=== PATIENT | female | born 1955 | race Caucasian/White ===

== ENCOUNTER 2017-10-02 01:23 | Emergency (ER) | payer OTHER ==
[2017-10-02] MEDS ORDERED: Albuterol/Ipratropium 3.0-0.5 MG/3 ML Neb Soln ONE (01:32)
[2017-10-02] MEDS ORDERED: methylPREDNISolone Sodium Succinate 125 MG/2 ML SDV ONE (01:32)
--- NOTE | 2017-10-02 01:37 | EDM.PDOC ---
ED HPI GENERAL MEDICAL PROBLEM - General Chief Complaint: Respiratory Problem Stated Complaint: AMBULANCE Time Seen by Provider: 10/02/17 01:33 - History of Present Illness INITIAL COMMENTS - FREE TEXT/NARRATIVE: HISTORY AND PHYSICAL: History of present illness: Patient is 61-year-old female past medical history significant for coronary artery disease including stent placement and COPD who is on home oxygen who was in a hotel when sister called paramedics for difficulty breathing and change in mental status. Paramedics had a blood sugar of 190 patient was hypoxemic and nonverbal at that point patient was given nebulizer IV was established high flow oxygen and transport initiated upon arrival patient is now verbal is oriented to person place moves all extremities and states she feels better Review of systems: As per history of present illness and below otherwise all systems reviewed and negative. Past medical history: As per history of present illness and as reviewed below otherwise noncontributory. Surgical history: As per history of present illness and as reviewed below otherwise noncontributory. Social history: No reported history of drug or alcohol abuse. Family history: As per history of present illness and as reviewed below otherwise noncontributory. Physical exam: HEENT: Atraumatic, normocephalic, pupils reactive, negative for conjunctival pallor or scleral icterus, mucous membranes moist, throat clear, neck supple, nontender, trachea midline. Lungs: Coarse bilaterally with scattered rare end expiratory wheezing, breath sounds equal bilaterally, chest nontender. Heart: S1S2, regular, negative for clicks, rubs, or JVD. Abdomen: Soft, nondistended, nontender. Negative for masses or hepatosplenomegaly. Negative for costovertebral tenderness. Pelvis: Stable nontender. Genitourinary: Deferred. Rectal: Deferred. Extremities: Atraumatic, negative for cords or calf pain. Neurovascular unremarkable. Neuro: Awake, follows commands moves all extremities oriented to person place limited but grossly nonfocal exam Diagnostics: CBC CMP PT/INR troponin ABG chest x-ray EKG Therapeutics: IV O2 monitor albuterol ipratropium nebulizer Solu-Medrol 125 mg IV Impression: #1 COPD exacerbation #2 altered mental status improve Definitive disposition and diagnosis as appropriate pending reevaluation and review of above. - Related Data Allergies Allergy/AdvReac Type Severity Reaction Status Date / Time No Known Allergies Allergy Verified 10/02/17 01:30 Home Meds: Home Meds Aspirin 1 tab PO DAILY 10/02/17 [History] Clopidogrel [Plavix] 75 mg PO DAILY 10/02/17 [History] Nitroglycerin [Nitrostat] 0.4 mg SL Q5M PRN 10/02/17 [History] traMADol [Ultram] 1 tab PO BID PRN 10/02/17 [History] ED ROS GENERAL - Review of Systems Review Of Systems: ROS reveals no pertinent complaints other than HPI. ED EXAM, GENERAL - Physical Exam Exam: See Below (See dictated) Course - Vital Signs Last Recorded V/S: Last Vital Signs Temp 36.1 C 10/02/17 01:23 Pulse 107 H 10/02/17 01:23 Resp 26 H 10/02/17 01:23 BP 143/93 H 10/02/17 01:23 Pulse Ox 94 L 10/02/17 01:23 - Orders/Labs/Meds Orders: Active Orders 24 hr Category Date Time Status EKG Documentation Completion [RC] STAT Care 10/02/17 01:40 Active RT Aerosol Therapy [RC] ASDIRECTED Care 10/02/17 01:52 Active Chest 1V Frontal [CR] Stat Exams 10/02/17 01:40 Ordered B-TYPE NATRIURETIC PEPTIDE,BNP [CHEM] Stat Lab 10/02/17 01:46 Received CKMB [CHEM] Stat Lab 10/02/17 01:46 Received COMPREHENSIVE METABOLIC PN,CMP [CHEM] Stat Lab 10/02/17 01:46 Received D-DIMER QUANTITATIVE [COAG] Stat Lab 10/02/17 01:46 Received INR,PT,PROTHROMBIN TIME [COAG] Stat Lab 10/02/17 01:46 Received TROPONIN I [CHEM] Stat Lab 10/02/17 01:46 Received Labs: Laboratory Tests 10/02/17 10/02/17 Range/Units 01:40 01:46 WBC 5.36 (4.0-11.0) K/uL RBC 4.11 L (4.30-5.90) M/uL Hgb 13.2 (12.0-16.0) g/dL Hct 40.5 (36.0-46.0) % MCV 98.5 H (80.0-98.0) fL MCH 32.1 H (27.0-32.0) pg MCHC 32.6 (31.0-37.0) g/dL RDW Std Deviation 49.7 (28.0-62.0) fl RDW Coeff of Claudine 14 (11.0-15.0) % Plt Count 213 (150-400) K/uL MPV 9.50 (7.40-12.00) fL Neut % (Auto) 53.2 (48.0-80.0) % Lymph % (Auto) 33.2 (16.0-40.0) % [place] % (Auto) 11.2 (0.0-15.0) % Eos % (Auto) 2.2 (0.0-7.0) % Baso % (Auto) 0.2 (0.0-1.5) % Neut # (Auto) 2.9 (1.4-5.7) K/uL Lymph # (Auto) 1.8 (0.6-2.4) K/uL [place] # (Auto) 0.6 (0.0-0.8) K/uL Eos # (Auto) 0.1 (0.0-0.7) K/uL Baso # (Auto) 0.0 (0.0-0.1) K/uL Nucleated RBC % 0.0 /100WBC Nucleated RBCs # 0 K/uL ABG pH 7.220 L (7.35-7.45) ABG pCO2 68 H (35-45) mmHG ABG pO2 225 H (75-100) mmHG ABG HCO3 28 H (22-26) mEq/L ABG Total CO2 26.0 ABG Base Excess -1.5 (-2.0-2.0) Meds: Medications Discontinued Medications Generic Name Dose Route Start Last Admin Trade Name Faith PRN Reason Stop Dose Admin Albuterol/Ipratropium Confirm 10/02/17 01:32 Duoneb 3.0-0.5 Mg/3 Ml Administered 10/02/17 01:33 Dose 3 ml .ROUTE .STK-MED ONE Albuterol/Ipratropium 3 ml 10/02/17 01:51 10/02/17 01:53 Duoneb 3.0-0.5 Mg/3 Ml NEB 10/02/17 01:52 3 ml ONETIME ONE Administration Methylprednisolone Sodium Succinate Confirm 10/02/17 01:32 Solu-Medrol Administered 10/02/17 01:33 Dose 125 mg .ROUTE .STK-MED ONE Methylprednisolone Sodium Succinate 125 mg 10/02/17 01:51 10/02/17 01:53 Solu-Medrol IVPUSH 10/02/17 01:52 125 mg ONETIME ONE Administration Departure - Departure Time of Disposition: 01:57 Disposition: DC/Tfer to Acute Hospital 02 Condition: Serious Clinical Impression: Ventilatory failure, COPD (chronic obstructive pulmonary disease) - Discharge Information Referrals: PCP,None [Primary Care Provider] - Forms: ED Department Discharge - My Orders Last 24 Hours: My Active Orders 10/02/17 01:40 EKG Documentation Completion [RC] STAT Chest 1V Frontal [CR] Stat 10/02/17 01:46 B-TYPE NATRIURETIC PEPTIDE,BNP [CHEM] Stat CKMB [CHEM] Stat COMPREHENSIVE METABOLIC PN,CMP [CHEM] Stat D-DIMER QUANTITATIVE [COAG] Stat INR,PT,PROTHROMBIN TIME [COAG] Stat TROPONIN I [CHEM] Stat 10/02/17 01:52 RT Aerosol Therapy [RC] ASDIRECTED - Assessment/Plan Last 24 Hours: My Active Orders 10/02/17 01:40 EKG Documentation Completion [RC] STAT Chest 1V Frontal [CR] Stat 10/02/17 01:46 B-TYPE NATRIURETIC PEPTIDE,BNP [CHEM] Stat CKMB [CHEM] Stat COMPREHENSIVE METABOLIC PN,CMP [CHEM] Stat D-DIMER QUANTITATIVE [COAG] Stat INR,PT,PROTHROMBIN TIME [COAG] Stat TROPONIN I [CHEM] Stat 10/02/17 01:52 RT Aerosol Therapy [RC] ASDIRECTED
[2017-10-02] MEDS ORDERED: methylPREDNISolone Sodium Succinate 125 MG/2 ML SDV IVPUSH ONE (01:51)
[2017-10-02] MEDS ORDERED: Albuterol/Ipratropium 3.0-0.5 MG/3 ML Neb Soln NEB ONE (01:51)
[2017-10-02] MEDS ORDERED: LORazepam 2 MG/ML SDV ONE (02:14)
[2017-10-02 02:16] LABS: CHLORIDE,CL 104 mmol/L (98-110); SODIUM,NA 142 mmol/L (136-146)
[2017-10-02] MEDS ORDERED: LORazepam 2 MG/ML SDV IVPUSH ONE (02:16)
[2017-10-02] MEDS ORDERED: Sodium Chloride 0.9% 1,000 ML IV ONE (02:36)
--- NOTE | 2017-10-02 15:51 | CR ---
EXAM DATE: 10/02/17 PATIENT'S AGE: 61 Patient: AISSATOU WOMACK Facility: [place], [place] Site . Site : [id number] Study: XRay Chest [id number]/19/2017 2:04:31 AM Ordering Physician: Oliver Peralta Final Report: Indication: Shortness of breath, weakness Technique: Chest 1 view Comparison: None Findings/Impression: Cardiovascular and mediastinum: Heart size and vasculature are normal in caliber and appearance. Mediastinum is within normal limits. Lungs and pleural space: Lungs are clear. No sign of infiltrate or mass. No sign of pleural effusion. No pneumothorax. Bones and soft tissues: No significant findings. Dictated by Vandana Wilson MD @ Oct 02 2017 2:08AM (Electronic Signature) Report Signed by Proxy. HALEY
== END 2017-10-02 03:27 ==
LOC: MW.ED 01:23
DX: J95.850 Mechanical complication of respirator (principal); J44.1 Chronic obstructive pulmonary disease with (acute) exacerbation; R41.82 Altered mental status, unspecified; Z79.899 Other long term (current) drug therapy; Z79.82 Long term (current) use of aspirin
CPT/HCPCS: 36415; 36600; 71010; 80053; 82553; 82803; 82962; 83880; 84484; 85025; 85379; 85610; 93005; 94660; 96361; 96374; 96375; 99285; J2060; J2930; J7040